=== PATIENT | male | born 1995 | race Caucasian/White ===

== ENCOUNTER → 2017-02-24 | Outpatient (CLI) | payer OTHER ==
[~2017-02-24] MED LIST: BIMA0.01 OPR; BRIM0.2S OPR; MULTTAB58 PO
--- NOTE | 2017-02-24 17:01 | DIAGNOSTIC IMAGING REPORT ---
MRI LUMBAR SPINE W/O CONTRAST CLINICAL HISTORY: Back pain with left-sided radiculopathy. TECHNIQUE: Sagittal and axial T1, T2 and STIR images were obtained. COMPARISON STUDY: No previous studies for comparison. OBSERVATIONS: The vertebral bodies and posterior elements appear intact. There is no abnormal bony signal present to suggest a marrow replacement process. L1-2: No disc protrusions or extrusions. No evidence of spinal canal or neural foraminal compromise. L2-3: No disc protrusions or extrusions. No evidence for spinal canal or neural foraminal compromise L3-4: There is a small to moderate broad-based central disc protrusion with mild secondary spinal canal narrowing. There is minor right-sided subfrontal narrowing. L4-5: There is a small central disc protrusion which slightly deforms the anterior aspect of thecal sac. There is no significant foraminal narrowing L5-S1: There is a moderate left posterior central disc protrusion. The disc material abuts the left S1 nerve root. There is no significant foraminal narrowing. The conus medullaris and cauda equina appear normal. IMPRESSION: 1. Small to moderate broad-based central disc protrusion at the L3-4 level 2. Small central disc protrusion at the L4-5 level 3. Moderate left posterior central disc protrusion at the L5-S1 level. The disc abuts and slightly displaces the left S1 nerve root. Electronically signed by: Randall Keller M.D. 02/24/2017 4:59 PM Dictated Date/Time: 02/24/2017 4:42 PM
== END | disposition home or self-care (01) ==
LOC: C.MRIBC 15:23
PROVIDERS: ATTEND Physical Medicine & Rehabilitation
DX: M51.26 Other intervertebral disc displacement, lumbar region (principal); M54.16 Radiculopathy, lumbar region

== ENCOUNTER → 2017-03-04 | Day surgery (SDC) | payer OTHER ==
[2017-02-11 12:11] VITALS: Ht 182.9 cm; Wt 84.1 kg
[~2017-03-04] VITALS: Ht 182.9 cm; Wt 84.1 kg
[~2017-03-04] MED LIST changes: +IOPAMIDOL INJ 61% 15 ML VIAL ONE; +LIDOCAINE HCL 1% MPF 5 ML VIAL ONE; +SODIUM CHLORIDE 0.9% INJ 10 ML VIAL ONE
[2017-03-04 08:13] VITALS: TEMP 36.7
--- NOTE | 2017-03-04 08:50 | History & Physical Bridge - [place] ---
H&P Re-Evaluation Bridge Note: I have examined the patient, reviewed the History & Physical and in the interval since the performance of the History & Physical I have noted the following changes of clinical significance: No changes noted
[2017-03-04 09:14] VITALS: BP 143/81; PULSE 65; O2SAT 100
--- NOTE | 2017-03-04 09:18 | Discharge Instructions ---
Discharge Instructions Date of Service Mar 04, 2017. Visit Reason for Visit: Lumbar Radiculopathy Discharge Discharge Diagnosis / Problem: left leg pain Discharge Goals Goal(s): Decrease discomfort, Improve function Activity Recommendations Activity Limitations: resume your previous activity Anesthesia . Post Anesthesia Instructions: If you have had General Anesthesia or IV Sedation: * Do not drive today. * Resume driving when surgeon permits. * Do not make important decisions or sign legal documents today. * Call surgeon for: 1. Temperature elevations greater than 101 degrees F. 2. Uncontrollable pain. 3. Excessive bleeding. 4. Persistent nausea and vomiting. 5. Medication intolerance (nausea, vomiting or rash). * For nausea and vomiting use only clear liquids such as: tea, soda, bouillon until nausea subsides, then gradually increase diet as tolerated. * If you have any concerns or questions, call your surgeon's office. If physician is unavailable and it is an emergency, call 911 or go to the nearest emergency room. . Diet Recommendations Recommended Home Diet: no limitations Procedures Procedures Performed: Lumbar Epidural Steroid Injection Pending Studies Studies pending at discharge: no Medical Emergencies . Who to Call and When: Medical Emergencies: If at any time you feel your situation is an emergency, please call 911 immediately. . Non-Emergent Contact Non-Emergency issues call your: Specialist . . "Provider Documentation" section prepared by Williams Corona. .
--- NOTE | 2017-03-04 09:27 | OPERATIVE REPORT ---
DATE OF OPERATION: 03/04/2017 PREOPERATIVE DIAGNOSIS: Lumbar disc herniation with a left L5 radiculopathy. POSTOPERATIVE DIAGNOSIS: Same. PROCEDURE: Left paramedian L5-S1 intralaminar epidural steroid injection under fluoroscopic guidance. INDICATIONS: The patient is a 21-year-old white male who has had an 11 month history of low back pain that has gotten minimally better with conservative measures including physical therapy and medications. He presents today for an epidural injection to provide him with relief of persistent radicular pain down the left leg. PHYSICAL EXAMINATION: Pleasant male seated comfortably. He has some sciatic notch sensitivity on the left. Limitations with forward flexion. Pain inhibition with straight leg testing of both the right and left leg and no focal weakness. CONSENT: Verbal and written consent was obtained from the patient. Risks and benefits were reviewed. Risks include but are not limited to epidural abscess, epidural hematoma, dural puncture. The patient wishes to proceed. DESCRIPTION OF PROCEDURE: The patient was taken back to the special procedures room of the [facility] where he was maintained in a prone position. Backside was cleansed with Betadine x3 and a dry sterile dressing was applied. Fluoroscope was used to identify the L5-S1 intralaminar space. Overlying skin was anesthetized with 4 mL of lidocaine 1% with a 25 gauge 1.5-inch needle. A 22-gauge 3-1/2 inch Tuohy needle was then directed down towards the intralaminar space. It was advanced under lateral fluoroscopic guidance and loss of resistance was noted at a depth of 5.5 cm. Isovue-300 contrast 1 mL was injected in which demonstrated an epidural uptake pattern which was then injected after negative aspiration of 40 mg of Depo-Medrol and 4 mL of preservative free sodium chloride. Injection was well tolerated. DISPOSITION: 1. The patient is taken out into the discharge recovery area where he will be discharged home once discharge criteria have been met. 2. Follow up in the [facility] office in 4 weeks' time. I attest to the content of the Intraoperative Record and any orders documented therein. Any exception s are noted below.
== END | disposition home or self-care (01) ==
LOC: X.SURG 07:54
PROVIDERS: ATTEND Physical Medicine & Rehabilitation
DX: M51.16 Intervertebral disc disorders with radiculopathy, lumbar region (principal)

== ENCOUNTER → 2017-07-30 | Day surgery (SDC) | payer OTHER ==
[2017-07-13 10:32] VITALS: Ht 182.9 cm; Wt 84.1 kg
[~2017-07-30] VITALS: Ht 182.9 cm; Wt 84.1 kg
[~2017-07-30] MED LIST changes: +GABA-113 PO
--- NOTE | 2017-07-30 14:41 | [facility] Post Operative Brief Note ---
Immediate Operative Summary Operative Date July 30, 2017. Pre-Operative Diagnosis L5-S1 HNP W/ L5 RADICULOPATHY. Post-Operative Diagnosis SAME Procedure(s) Performed LUMBAR EPIDURAL STEROID INJECTION Surgeon DR. Tabitha TOBAR [employer] Surgeon(s) None Estimated Blood Loss NOne Findings Consistent with Post-Op Diagnosis Specimens NA Drains None Anesthesia Type Local Complication(s) none Disposition Disposition:
--- NOTE | 2017-07-30 14:42 | Discharge Instructions ---
Discharge Instructions Date of Service July 30, 2017. Visit Reason for Visit: Lumbar Radiculopathy Discharge Discharge Diagnosis / Problem: left leg pain Discharge Goals Goal(s): Decrease discomfort, Improve function Medications Stopped Medications Name(s): has not taken for at least 3 days Activity Recommendations Activity Limitations: resume your previous activity Anesthesia . Post Anesthesia Instructions: If you have had General Anesthesia or IV Sedation: * Do not drive today. * Resume driving when surgeon permits. * Do not make important decisions or sign legal documents today. * Call surgeon for: 1. Temperature elevations greater than 101 degrees F. 2. Uncontrollable pain. 3. Excessive bleeding. 4. Persistent nausea and vomiting. 5. Medication intolerance (nausea, vomiting or rash). * For nausea and vomiting use only clear liquids such as: tea, soda, bouillon until nausea subsides, then gradually increase diet as tolerated. * If you have any concerns or questions, call your surgeon's office. If physician is unavailable and it is an emergency, call 911 or go to the nearest emergency room. . Diet Recommendations Recommended Home Diet: resume previous diet Procedures Procedures Performed: LUMBAR EPIDURAL STEROID INJECTION Pending Studies Studies pending at discharge: no Medical Emergencies . Who to Call and When: Medical Emergencies: If at any time you feel your situation is an emergency, please call 911 immediately. . Non-Emergent Contact Non-Emergency issues call your: Specialist . . "Provider Documentation" section prepared by Williams Corona. .
[2017-07-30 14:45] VITALS: TEMP 37.1
[2017-07-30 15:15] VITALS: BP 110/68; PULSE 71; O2SAT 96
--- NOTE | 2017-07-30 15:20 | OPERATIVE REPORT ---
DATE OF OPERATION: 07/30/2017 PREOPERATIVE DIAGNOSIS: L5-S1 herniated nucleus pulposus with a left L5 radiculopathy. POSTOPERATIVE DIAGNOSIS: L5-S1 herniated nucleus pulposus with a left L5 radiculopathy. PROCEDURE: Left paramedian L5-S1 intralaminar epidural steroid injection under fluoroscopic guidance. INDICATIONS: The patient is a 21-year-old white male who returns today for an epidural injection. It is the second one he received and on his initial injection had good relief for a short duration. The idea is to stack the effect of the second epidural to try to improve the effectiveness. PHYSICAL EXAMINATION: Pleasant male seated comfortably. He has some pain inhibition with testing of his left lower extremity, intact sensation, no focal weakness. CONSENT: Verbal and written consent was obtained from the patient. Risks and benefits were reviewed. Risks include but are not limited to epidural abscess, epidural hematoma, allergic reaction, dural puncture. The patient wishes to proceed. DESCRIPTION OF PROCEDURE: The patient was taken back to the special procedures room of the [facility] where he was maintained in a prone position. Backside was cleansed with Betadine x3 and a dry sterile dressing was applied. Fluoroscope was used to identify the L5-S1 intralaminar space. Overlying skin on the left side was anesthetized with 4 mL of lidocaine 1% with a 25 gauge 1.5-inch needle. A 22-gauge 3.5 inch Tuohy needle was then directed down towards the intralaminar space. It was advanced under lateral fluoroscopic guidance. Loss of resistance was noted at a depth of 5.5 cm, which was sensitive for the patient. Isovue-300 contrast 1 mL was injected, which showed nice epidural uptake pattern including outlining of the S1 nerve root. He underwent injection after negative aspiration of 40 mg of Depo-Medrol, 4 mL preservative sodium chloride on a very slow basis as it reproduced a transient radicular sensation down the leg. DISPOSITION: 1. The patient is taken out into the discharge recovery area, where he will be discharged home once discharge criteria are met. 2. Follow up in the [facility] office in two to three weeks. I attest to the content of the Intraoperative Record and any orders documented therein. Any exception s are noted below.
== END | disposition home or self-care (01) ==
LOC: X.SURG 13:28
PROVIDERS: ATTEND Physical Medicine & Rehabilitation
DX: M51.16 Intervertebral disc disorders with radiculopathy, lumbar region (principal)